=== PATIENT | male | born 1980 | race Hispanic/Latino ===

== ENCOUNTER 2016-09-08 11:39 | Emergency (ER) | payer MEDICAID ==
[~2016-09-08] VITALS: Ht 170.2 cm; Wt 108.6 kg
[2016-09-08 11:42] VITALS: BP 182/100; PULSE 98; RESP 20; O2SAT 98
--- NOTE | 2016-09-08 12:05 | ED.REPORT ---
HPI-General Illness Date of Service Sep 08, 2016 ED Provider: Fadi Orlando MD Pt is a 36 y.o. male with a hx of DM II and HTN who presents to the ED c/o bilateral blurred vision onset 10 minutes prior to arrival. Pt states that it feels like his blood pressure is elevated. He reports associated chest pain described as burning/aching, onset 30 minutes prior to exam. He claims that he has been experiencing similar intermittent chest pain for the last month. Pt takes 5mg lisinopril, metformin, Humalog (sliding scale), and 30mg Lantus at night. Pt is not a local resident and is currently here visiting family. Nursing Notes Stated Complaint: HIGH BP Chief Complaint: General Complaint Nursing Notes Reviewed: Yes Allergies: Coded Allergies: No Known Allergies (Unverified Allergy, Unknown, 06/22/14) General Time Seen by MD: 11:56 Chief Complaint Other (Blurred vision, bilaterally) Hx Obtained From: Patient Arrived By: Walk-in Sudden in Onset?: Yes Onset Occurred: 1 - 15 minutes ago Symptom Duration: Since onset Location: : Chest Quality: Aching, Burning, Painful Severity: Current: Mild Past Medical History Past Medical History Reports: Diabetes mellitus, Hypertension Past Surgical History None reported Social History Other Social History: From out of town Ambulatory Status Independent Review of Systems Elevated BP Full Review of Systems Eyes: Reports: Blurred bilateral Cardiovascular: Reports: Chest pain Complete sys rev & neg: except as marked. Physical Exam Vital Signs Vital Signs Date Time Temp Pulse Resp B/P Pulse Ox O2 Delivery O2 Flow Rate FiO2 09/08/16 15:54 87 15 136/78 97 Room Air 09/08/16 14:46 97 16 136/92 97 Room Air 09/08/16 14:27 36.6 95 19 147/81 97 Room Air 09/08/16 13:13 36.9 98 22 142/91 98 Room Air 09/08/16 12:32 98 20 147/76 98 Room Air 09/08/16 11:42 36.3 98 20 182/100 98 Room Air Initial VS: Reviewed Extremities: Vascular intact, Neuro intact Skin: Warm, Dry, No cyanosis Psychiatric: Mood/affect normal, Behavior normal, Normal thought content General/Constitutional: Awake, Alert, No acute distress, Well appearing, Well developed, Well hydrated, Well nourished, Not toxic appearing Appearance / Presentation: Positive: Obese Head / Eyes: Atraumatic, Normocephalic, PERRL, EOMI, Visual acuity NL Respiratory / Chest: Atraumatic, Breath sounds NL, Breath sounds = bilat, No respiratory distress Cardiovascular: Heart rate NL, Regular rhythm, Heart sounds NL, No gallop, No murmurs, Cap refill not delayed, Peripheral circulation NL Abdomen: Atraumatic, Soft, Non-tender, No distention, No palpable mass Neurologic: Oriented X3, Speech NL, No motor deficits, CN II - XII intact Interpretation & Diagnostics Lab Results Interpretation Result Diagram: 09/08/16 1250 09/08/16 1250 Test 09/08/16 12:50 09/08/16 12:54 White Blood Count 7.8th/mm3 (3.8-10.1) Red Blood Count 5.16mil/mm3 (4.40-5.80) Hemoglobin 14.6g/dL (13.8-17.2) Hematocrit 42.9% (41.0-50.0) Mean Corpuscular Volume 83.1fL (81-100) Mean Corpuscular Hemoglobin 28.3pg (27.0-35.0) Mean Corpuscular Hemoglobin Concent 34.0% (32.0-37.0) Red Cell Distribution Width 12.7% (12.3-15.4) Platelet Count 270bil/L (150-400) Neutrophils (%) (Auto) 60.1% (40-74) Lymphocytes (%) (Auto) 29.0% (14-46) Monocytes (%) (Auto) 8.6% (4-12) Eosinophils (%) (Auto) 1.9% (0-5) Basophils (%) (Auto) 0.1% (0-3) Sodium Level 135mEq/L (134-144) Potassium Level 3.9mEq/L (3.5-5.2) Chloride Level 96mEq/L (97-108) Carbon Dioxide Level 23mmol/L (18-29) Blood Urea Nitrogen 13mg/dL (6-20) Creatinine 0.84mg/dL (0.76-1.27) Estimat Glomerular Filtration Rate 111mL/min (>59) Glucose Level 203mg/dL (60-99) Calcium Level 9.5mg/dL (8.5-10.1) Magnesium Level 1.9mg/dL (1.6-2.6) Total Bilirubin 0.3mg/dL (0.0-1.2) Aspartate Amino Transf (AST/SGOT) 14U/L (0-50) Alanine Aminotransferase (ALT/SGPT) 27U/L (0-44) Alkaline Phosphatase 107U/L (25-150) Troponin T < 0.010ug/L (0.0-0.011) Pro-B-Type Natriuretic Peptide 5.00pg/mL (0-86) Total Protein 7.4g/dL (6.4-8.4) Albumin 4.1g/dL (3.4-5.0) Urine Color Yellow (YELLOW) Urine Appearance Clear (CLEAR,HAZY) Urine pH 7.0 (5.0-8.0) Urine Specific [place] <1.005 (1.003-1.035) Urine Protein Negativemg/dL (NEG,TRACE) Urine Glucose (UA) >1000mg/dL (NEGATIVE) Urine Ketones Negativemg/dL (NEGATIVE) Urine Occult Blood Negative (NEGATIVE) Urine Nitrite Negative (NEGATIVE) Urine Bilirubin Negative (NEGATIVE) Urine Urobilinogen Normalmg/dL (NORMAL) Urine Leukocyte Esterase Negative (NEGATIVE) Urine RBC 0-2/hpf (0-2) Urine WBC 0-5/hpf (0-5) Urine Epithelial Cells Few/hpf (NONE-MOD) Urine Crystals None seen (NONE SEEN) Urine Bacteria Few/hpf (NONE-FEW) Urine Hyaline Casts None/lpf (NONE) Urine Granular Casts None seen (NONE SEEN) Urine Waxy Casts None seen (NONE SEEN) Urine Red Blood Cell Casts None seen (NONE SEEN) Urine White Blood Cell Casts None seen (NONE SEEN) Urine Mucus None seen (None Seen) Urine Trichomonas None seen (NONE SEEN) Urine Yeast None (NONE SEEN) Urinalysis Comment None Urine Culture Reflexed Not indicated ECG Interpretation ECG Interpretation: Lateral ST elevation that appears to be early repolarization with no reciprocal changes. Time: 12:30 Interpreted by: ED physician Normal ECG Interpretation: Normal rate (94), Normal sinus rhythm Time: 15:26 Interpreted by: ED physician Normal ECG Interpretation: Normal rate (83), Normal sinus rhythm Repeat ECG: Repeat ECG unchanged X-Ray Chest Interpretation Chest Xray Interpretation: IMPRESSION: No acute cardiopulmonary disease process. Dictated by: Audrey Mckeon MD, PhD on 09/08/2016 at 13:21 Approved by: Audrey Mckeon MD, PhD on 09/08/2016 at 13:21 CT Head Interpretation IMPRESSION: No acute intracranial disease process. Dictated by: Audrey Mckeon MD, PhD on 09/08/2016 at 13:23 Approved by: Audrey Mckeon MD, PhD on 09/08/2016 at 13:25 Re-Eval/Medical Decision Med Decision/Clinical Course 36 year-old male with hypertension, blurred vision and intermittent chest pain for weeks. CP is not exertional and ECG has some early repol but no acute findings. Inital ECG done with pain, pain-free ECG is unchanged. Did not trend trop as the symptom of CP has been present for some time. Pt is on lisinopril 5mg and while initial BP was high, repeats were borderline. I think we could safely double his lisinopril and have him re-check with primary care. Also advised him to decrease salt in diet. Source of Hx: Old records Time of Eval: 14:42 Patient Status: Condition improved Re-Evaluation/Progress Note: Pt rechecked. Pt is feeling improved. Pt endorses a lot of caffeine use. He also states that he has had recent penile itching for which he uses a cream. Discussed imaging and lab results as well as plan for repeat EKG. Pt understands and agrees with plan. Time of Eval: 15:42 Re-Evaluation/Progress Note: Pt rechecked. Discussed plan to double Lisinopril until he sees his PCP and plan for discharge, pt understands and agrees with plan. Counseled Regarding: Diagnosis, Lab results, Need for follow-up, When/why to return to ED Discharge & Departure Primary Impression: Hypertension Additional Impression: Non-cardiac chest pain Disposition: Home Discharge Condition All VS Reviewed: Yes Condition: Improved Patient Instructions: Chest Pain (ED), Hypertension (ED), Noncardiac Chest Pain (ED) Additional Instructions: Thank you for entrusting us with your care today. You lab results and imaging were all reassuring and no serious cause for your chest pain and hypertension were seen. I recommend you follow a low-sodium diet and decrease your caffeine intake. Keep your appointment on the 9th, and discuss your visit in the ED. Double your Lisinopril (10mg) until you see your physician. Return if you experience worsening chest pain, weakness, numbness or tingling in your extremities, or any new or worsening symptoms. Referrals: TAMI STEWART (PCP) Sabino Attestation Portions of this note were transcribed by Stan Bell. I, Dr. Orlando personally performed the history, physical exam and medical decision-making; I reviewed and confirmed the accuracy of the information in the transcribed note. Signed by: Sabino Strange, 09/08/16 and [id number] copies to: TAMI STEWART Donald L MD Sep 08, 2016 12:05 STAN BELL Sep 08, 2016 12:12
[2016-09-08 12:32] VITALS: BP 147/76; PULSE 98; RESP 20; O2SAT 98
[2016-09-08 13:13] VITALS: BP 142/91; PULSE 98; RESP 22; O2SAT 98
--- NOTE | 2016-09-08 13:23 | DRSVH ---
PROCEDURE: X-RAY CHEST ONE VIEW, PORTABLE ([id number]) INDICATIONS: chest pain TECHNIQUE: One view of the chest was acquired. COMPARISON: None. FINDINGS: Surgical changes and devices: None. Lungs and pleura: No pleural effusions or pneumothorax. Lungs are clear. Mediastinum: Mediastinal contours appear normal. Heart size is normal. Bones and chest wall: No suspicious bony lesions. Overlying soft tissues appear unremarkable. IMPRESSION: No acute cardiopulmonary disease process. Dictated by: Audrey Mckeon MD, PhD on 09/08/2016 at 13:21 Approved by: Audrey Mckeon MD, PhD on 09/08/2016 at 13:21
--- NOTE | 2016-09-08 13:26 | DRSVH ---
PROCEDURE: CT BRAIN WITHOUT CONTRAST ([id number]) INDICATIONS: HTN and MIMS/blurring TECHNIQUE: Noncontrast 4.5 mm thick angled axial sections acquired from the foramen magnum to the vertex, with c oronal reformats. COMPARISON: None. FINDINGS: Image quality: Excellent. CSF spaces: Basal cisterns are patent. No extra-axial fluid collections. Ventricles are normal in size and shape. Brain: No midline shift. No intracranial masses or hemorrhage. Barkley-white matter interface is norm al. Skull and face: Calvarium and visualized facial bones are intact, without suspicious lesions. Sinuses: Visualized sinuses and mastoids are clear. IMPRESSION: No acute intracranial disease process. Dictated by: Audrey Mckeon MD, PhD on 09/08/2016 at 13:23 Approved by: Audrey Mckeon MD, PhD on 09/08/2016 at 13:25
[2016-09-08 13:38] LABS: BASOPHILS % (AUTO) 0.1 % (0-3); EOSINOPHILS % (AUTO) 1.9 % (0-5); MONOCYTES % (AUTO) 8.6 % (4-12); Mean Corpuscular Hemoglobin 28.3 pg (27.0-35.0); Mean Corpuscular Volume 83.1 fL (81-100); NEUTROPHILS % (AUTO) 60.1 % (40-74); Platelet Count 270 bil/L (150-400)
[2016-09-08 13:56] LABS: TROPONIN T < 0.010 ug/L (0.0-0.011)
[2016-09-08 14:01] LABS: Magnesium 1.9 mg/dL (1.6-2.6)
[2016-09-08 14:11] LABS: APPEARANCE,URINE CLEAR (CLEAR,HAZY); COLOR,URINE YELLOW (YELLOW); OCCULT BLOOD,URINE NEGATIVE (NEGATIVE); UROBILINOGEN,URINE NORMAL (NORMAL)
[2016-09-08 14:27] VITALS: BP 147/81; PULSE 95; RESP 19; O2SAT 97
[2016-09-08 14:46] VITALS: BP 136/92; PULSE 97; RESP 16; O2SAT 97
[2016-09-08 15:54] VITALS: BP 136/78; PULSE 87; RESP 15; O2SAT 97
== END 2016-09-08 15:56 | disposition home or self-care (01) ==
LOC: SED 11:39
DX: I10 Essential (primary) hypertension (principal); R07.89 Other chest pain; E11.9 Type 2 diabetes mellitus without complications; Z79.84 Long term (current) use of oral hypoglycemic drugs; Z79.4 Long term (current) use of insulin